=== PATIENT | male | born 1965 | race Caucasian/White ===

== ENCOUNTER 2021-02-24 15:26 | Emergency (ER) | payer OTHER ==
[2021-02-24 16:15] LABS: Hemoglobin 16.9 g/dL (14.0-18.0); Mean Corpuscular HGB CONC 34.3 g/dL (32.0-36.0); Mean Corpuscular Hemoglobin 39.1 pg (27.0-31.0); Mean Platelet Volume 6.6 fL (7.4-10.4); Platelet Count 153 thou/uL (130-400); RBC Distribution Width 12.1 % (11.5-14.5); Red Blood Cell (RBC) Count 4.31 mill/uL (4.70-6.10); White Blood Cell (WBC) Count 6.6 thou/uL (4.8-10.8)
[2021-02-24 16:18] LABS: Acetaminophen Less than 6.0 mcg/mL (10.0-30.0); Alcohol 320 mg/dL (Less than 10); CK (CPK) 132 U/L (30-200); Salicylate Less than 8.0 mg/dL (15.0-30.0)
[2021-02-24 16:20] LABS: ALT (SGPT) 17 U/L (8-55); AST (SGOT) 28 U/L (5-34); Alkaline Phosphatase 52 U/L (40-110); Anion Gap 17 mmol/L (10-20); BUN (Urea Nitrogen) 9 mg/dL (8.4-25.7); Bilirubin, Total 0.3 mg/dL (0.2-1.2); Calc. Creatinine Clearance 0 mL/min (70-130); Calcium 8.7 mg/dL (7.8-10.44); Carbon Dioxide 19 mmol/L (22-29); Chloride 110 mmol/L (98-107); Glucose 84 mg/dL (70-105); Potassium 4.2 mmol/L (3.5-5.1); Sodium 142 mmol/L (136-145)
[2021-02-24 16:32] LABS: Band 6 % (5-11); Eosinophils 2 % (0-10); Lymphocytes 35 % (21-51); MDiff Complete? YES; Macrocytosis SLIGHT = 6-15 cells (100X) (0-5/hpf); Monocytes 6 % (0-10); Neutrophil 48 % (42-75); Platelet Morphology Comment Appears Adequate; Reactive Lymphocytes 3 % (0-10)
[2021-02-24] MEDS ORDERED: Boostrix 0.5 ML (Tdap) VIAL ONE (17:12)
== END 2021-02-24 17:28 | disposition home or self-care (01) ==
LOC: ERS 15:26
DX: S80.02XA Contusion of left knee, initial encounter (principal); S00.81XA Abrasion of other part of head, initial encounter; S50.812A Abrasion of left forearm, initial encounter; S50.811A Abrasion of right forearm, initial encounter; S80.211A Abrasion, right knee, initial encounter; Z23 Encounter for immunization; V69.49XA Driver of heavy transport vehicle injured in collision with other motor vehicles in traffic accident, initial encounter; F10.129 Alcohol abuse with intoxication, unspecified; Y90.8 Blood alcohol level of 240 mg/100 ml or more; H57.04 Mydriasis
CPT/HCPCS: 70450; 71045; 72125; 80053; 80307; 82550; 85025; 90471; 90715; 93005; G0390

== ENCOUNTER 2021-05-25 08:01 | Emergency (ER) | payer OTHER ==
[2021-05-25] MEDS ORDERED: Oxymetazoline HCl 0.05% (30 ML BOT) ONE ×2 (08:36→08:39)
== END 2021-05-25 09:40 | disposition home or self-care (01) ==
LOC: ERS 08:01
DX: S00.81XA Abrasion of other part of head, initial encounter (principal); R04.0 Epistaxis; Y00.XXXA Assault by blunt object, initial encounter
CPT/HCPCS: 99283

== ENCOUNTER 2021-06-01 12:31 | Emergency (ER) | payer OTHER | END 2021-06-01 16:22 | LOC: ERS 12:31 | DX: S06.0X0A Concussion without loss of consciousness, initial encounter (principal); Z87.891 Personal history of nicotine dependence | CPT/HCPCS: 70450; 93005 ==